=== PATIENT | female | born 1950 ===

== ENCOUNTER 2017-10-18 22:14 | Emergency (ER) | payer OTHER ==
[2017-10-18 22:26] VITALS: RESP 18; TEMP 98.8
--- NOTE | 2017-10-18 23:55 | CT ---
EXAM: CT Head Without Intravenous Contrast CLINICAL HISTORY: 66 years old, female; Pain; Headache; Additional info: Fell and hit head today TECHNIQUE: Axial computed tomography images of the head/brain without intravenous contrast. All CT scans at this facility use one or more dose reduction techniques, viz.: automated exposure control; ma/kV adjustment per patient size (including targeted exams where dose is matched to indication; i.e. head); or iterative reconstruction technique. COMPARISON: No relevant prior studies available. FINDINGS: Brain: There is mild diffuse cerebral atrophy present, consistent with this patient's age. No hemorrhage. No significant white matter disease. Ventricles: Unremarkable. No ventriculomegaly. Bones/joints: Unremarkable. No acute fracture. Soft tissues: Frontal scalp soft tissue swelling. Sinuses: Unremarkable as visualized. No acute sinusitis. Mastoid air cells: Unremarkable as visualized. No mastoid effusion. IMPRESSION: No acute intracranial findings.
--- NOTE | 2017-10-19 00:13 | C.PDOC ---
- HPI Time Seen by Provider: 10/18/17 23:05 Chief Complaint (Nursing): Trauma History Per: Patient, Family Injury Occurred (Timing): Hours Ago: (11) Description Of Injury (Context): Pt tripped and fell on sidewalk. Denies LOC. Location Of Injury: Right: Knee, Left: Head, Knee, Anterior: Head Severity: Moderate Additional History Per: Prior Records Past Medical History Reviewed: Historical Data, Nursing Documentation, Vital Signs Vital Signs: Last Vital Signs Temp 98.8 F 10/18/17 22:21 Pulse 82 10/18/17 22:21 Resp 18 10/18/17 22:21 BP 127/88 10/18/17 22:21 Pulse Ox 98 10/18/17 22:21 - Medical History PMH: HTN Family History: States: Unknown Family Hx - Social History Hx Alcohol Use: No Hx Substance Use: No - Immunization History Hx Tetanus Toxoid Vaccination: No Hx Influenza Vaccination: No Hx Pneumococcal Vaccination: No Review Of Systems Except As Marked, All Systems Reviewed And Found Negative. Constitutional: Negative for: Fever, Weakness Cardiovascular: Negative for: Chest Pain Respiratory: Negative for: Shortness of Breath Gastrointestinal: Negative for: Nausea, Vomiting, Abdominal Pain Musculoskeletal: Negative for: Neck Pain Neurological: Positive for: Headache. Negative for: Weakness, Numbness, Confusion, Seizures, Altered Mental Status Physical Exam - Physical Exam Appears: Non-toxic, No Acute Distress Skin: Normal Color, Warm, Dry Head: Swelling (Contusion of left forehead), No Laceration Eye(s): bilateral: PERRL, EOMI Neck: Normal ROM, No Midline Cervical Tenderness, No Step Off Deformity, Supple Chest: Symmetrical, No Deformity Cardiovascular: Rhythm Regular Respiratory: Normal Breath Sounds, No Accessory Muscle Use Gastrointestinal/Abdominal: Soft, No Tenderness Back: No Vertebral Tenderness Extremity: Normal ROM, No Deformity, Other (No bony tenderness) Extremity: Bilateral: Hips Non-Tender Neurological/Psych: Oriented x3, Normal Motor, Normal Sensation ED Course And Treatment O2 Sat by Pulse Oximetry: 98 Pulse Ox Interpretation: Normal - CT Scan/US CT head Other Rad Studies (CT/US): Read By Radiologist, Radiology Report Reviewed CT/US Interpretation: IMPRESSION: No acute intracranial findings. Reassessment Condition: Improved Disposition Counseled Patient/Family Regarding: Studies Performed, Diagnosis, Need For Followup - Disposition Disposition: HOME/ ROUTINE Disposition Time: 00:14 Condition: STABLE Additional Instructions: Follow up with your doctor. Return to the ER if you develop vomiting, weakness, numbness, confusion, worsening of symptoms or if you have any other concerns. Instructions: Minor Head Injury (DC) Forms: Gen Discharge Inst [place] Print Language: PALESTINIAN - Clinical Impression Clinical Impression: Minor closed head injury, Fall from slip, trip, or stumble, Contusion
[2017-10-19 00:34] VITALS: BP 125/78; PULSE 73; O2SAT 96
== END 2017-10-19 00:47 | disposition home or self-care (01) ==
LOC: SUPCPDRO 22:14 → C.ER 22:14
DX: S00.83XA Contusion of other part of head, initial encounter (principal); W01.0XXA Fall on same level from slipping, tripping and stumbling without subsequent striking against object, initial encounter; Y92.480 Sidewalk as the place of occurrence of the external cause

== ENCOUNTER 2017-10-26 13:06 | Emergency (ER) | payer OTHER ==
[2017-10-26 13:23] VITALS: BMI 19.5
[2017-10-26 13:25] VITALS: BP 169/91; PULSE 71; RESP 16; TEMP 97.8; O2SAT 99
--- NOTE | 2017-10-26 13:55 | C.PDOC ---
History Of Present Illness 66 year old female presents to the ED c/o itchiness to her left eye and skin around it for the past 8 days. Patient was seen in the ED on 10/18 for evaluation of a fall that affected the area around her left eye. Patient denies new injury, fall, trauma, runny nose, sore throat, fever, chills. Time Seen by Provider: 10/26/17 13:28 Chief Complaint (Nursing): Eye Problem Past Medical History Vital Signs: Last Vital Signs Temp 97.8 F 10/26/17 13:23 Pulse 71 10/26/17 13:23 Resp 16 10/26/17 13:23 BP 169/91 H 10/26/17 13:23 Pulse Ox 99 10/26/17 13:23 - Medical History PMH: HTN Family History: States: Unknown Family Hx - Social History Hx Alcohol Use: No Hx Substance Use: No - Immunization History Hx Tetanus Toxoid Vaccination: No Hx Influenza Vaccination: No Hx Pneumococcal Vaccination: No ED Course And Treatment O2 Sat by Pulse Oximetry: 99 Disposition - Disposition
--- NOTE | 2017-10-26 14:02 | C.PDOC ---
History Of Present Illness 66 year old female presents to the ED c/o itchiness to her left eye and the skin around it. Patient was seen in the ED on 10/18 for evaluation of a trip and fall that caused her to land on her left sided face. Patient still has some tenderness to the area above the left eye. Patient denies new injury, fall, trauma, runny nose, sore throat, fever, chills. Time Seen by Provider: 10/26/17 13:28 Chief Complaint (Nursing): Eye Problem History Per: Patient History/Exam Limitations: no limitations Onset/Duration Of Symptoms: Days Current Symptoms Are (Timing): Still Present Wears Contact Lens?: No Associated Symptoms: Itching Recent travel outside of the [place]: No Additional History Per: Patient Past Medical History Reviewed: Historical Data, Nursing Documentation, Vital Signs Vital Signs: Last Vital Signs Temp 97.8 F 10/26/17 13:23 Pulse 71 10/26/17 13:23 Resp 16 10/26/17 13:23 BP 169/91 H 10/26/17 13:23 Pulse Ox 99 10/26/17 14:17 - Medical History PMH: HTN Surgical History: No Surg Hx Family History: States: Unknown Family Hx - Social History Hx Alcohol Use: No Hx Substance Use: No - Immunization History Hx Tetanus Toxoid Vaccination: No Hx Influenza Vaccination: No Hx Pneumococcal Vaccination: No Review Of Systems Constitutional: Negative for: Fever, Chills Eyes: Positive for: Other (itchiness) ENT: Negative for: Nose Discharge, Throat Pain, Throat Swelling Respiratory: Negative for: Cough, Shortness of Breath Skin: Negative for: Rash Physical Exam - Physical Exam Appears: Non-toxic, No Acute Distress Skin: Normal Color, Warm, Dry, Ecchymosis (aobve left eyebrow) Head: Normacephalic, Tenderness (above left eyebrow) Eye(s): bilateral: Normal Inspection, PERRL, EOMI Ear(s): Bilateral: Normal Nose: No Discharge Oral Mucosa: Moist Throat: Normal, No Erythema, No Exudate Neck: Normal ROM, Supple Chest: Symmetrical Respiratory: Normal Breath Sounds, No Rales, No Rhonchi, No Wheezing Extremity: Normal ROM Neurological/Psych: Oriented x3, Normal Speech, Normal Motor, Normal Sensation Gait: Steady ED Course And Treatment O2 Sat by Pulse Oximetry: 99 (ON RA) Pulse Ox Interpretation: Normal Medical Decision Making Medical Decision Making: pt with mild tenderness at sight of ecchymosis, will tx with tylenol. c/o itch to eye and around eye, will tx with claritin. ophtho f/u recommended. Disposition Counseled Patient/Family Regarding: Diagnosis, Need For Followup, Rx Given - Disposition Referrals: Mir Anderson MD [Staff Provider] - [facility] [Outside] Disposition: HOME/ ROUTINE Disposition Time: 14:18 Condition: GOOD Additional Instructions: Por favor jaxon un seguimiento en la clnica mdica y con el oculista, el Dr. Anderson; llamar para citas [place] Tylenol para el dolor si es necesario; [place] Loratidine para picar. Please follow up in medical clinic and with eye doctor, Dr Anderson; call for appointments. Take tylenol for pain if needed; Take Loratidine for itching. Prescriptions: Acetaminophen [Tylenol 325mg tab] 650 mg PO Q6 #30 tab Loratadine 10 mg PO DAILY #30 tablet Instructions: Itchy Skin Forms: Gen Discharge Inst [place], [employer] ([place]) - Clinical Impression Clinical Impression: Itch of eye, left - PA / TIME STUDY TECHNOLOGIST / Resident Statement MD/DO has reviewed & agrees with the documentation as recorded. - Scribe Statement The provider has reviewed the documentation as recorded by the Scribe Kamari Noriega All medical record entries made by the Scribe were at my direction and personally dictated by me. I have reviewed the chart and agree that the record accurately reflects my personal performance of the history, physical exam, medical decision making, and the department course for this patient. I have also personally directed, reviewed, and agree with the discharge instructions and disposition.
== END 2017-10-26 14:45 | disposition home or self-care (01) ==
LOC: C.ER 13:06
DX: L29.9 Pruritus, unspecified (principal); I10 Essential (primary) hypertension